=== PATIENT | female | born 1945 | race Caucasian/White ===

== ENCOUNTER 2018-06-20 06:07 | Day surgery (SDC) | payer MEDICARE, OTHER ==
[~2018-06-20] VITALS: Ht 167.6 cm; Wt 84.4 kg
[~2018-06-20 06:07] MED LIST: ASPI1TAB PO; COQ-100C2 PO; IBUP-1114 PO; OMEP20CA3 PO; ST J300T2 PO; VITA100067 PO; VITA500T3 PO
[2018-06-20] MEDS ORDERED: ceFAZolin 1GM INJ (J0690 PER 500MG) As Ordered ONE (06:18)
[2018-06-20] MEDS ORDERED: LIDOCAINE 2% INJ 100 MG/5 ML SDV (FOR ANES.) As Ordered ONE (07:01)
[2018-06-20] MEDS ORDERED: ROCURONIUM BROMIDE 50 MG/5 ML VIAL As Ordered ONE (07:01)
[2018-06-20] MEDS ORDERED: dexameTHASONE 4 MG/ML 1ML VIAL (J1100) As Ordered ONE (07:01)
[2018-06-20] MEDS ORDERED: ONDANSETRON 4MG/2ML VIAL (J2405) As Ordered ONE (07:01)
[2018-06-20] MEDS ORDERED: PROPOFOL 200 MG/20 ML VIAL As Ordered ONE (07:01)
[2018-06-20] MEDS ORDERED: MIDAZOLAM INJ 2 MG/2 ML VIAL (J2250) As Ordered ONE (07:02)
[2018-06-20] MEDS ORDERED: fentaNYL 100 MCG/2 ML INJECTION (J3010) As Ordered ONE (07:02)
[2018-06-20] MEDS ORDERED: LIDOCAINE 2% W/EPIN INJ 20ML **PRES FREE As Ordered ONE (07:13)
[2018-06-20] MEDS ORDERED: BACITRACIN OINT 30GM As Ordered ONE (07:13)
[2018-06-20] MEDS ORDERED: LIDOCAINE W/EPINEPHRINE 1% 20ML VIAL As Ordered ONE (07:13)
--- NOTE | 2018-06-20 08:52 | POST-OPPD ---
Postoperative Procedure Note Date Of Procedure: Jun 20, 2018 PREOPERATIVE DIAGNOSIS: Basal cell carcinoma upper lip POSTOPERATIVE DIAGNOSIS: Same FINDINGS: Lesion 0.5x1cm upper lip. Open wound after excisions with margins 0.9x1.8cm PROCEDURE: Excision of malignant lesion upper lip SURGEON: Dr Poole ANESTHESIA: Local with sedation SPECIMENS: upper lip lesion (FS), Inferior margin ESTIMATED BLOOD LOSS: 4cc REPLACED: none DRAINS: none COMPLICATIONS: none POSTOPERATIVE CONDITION: Stable to recovery YSABEL POOLE DO Jun 20, 2018 08:52
[2018-06-20] MEDS ORDERED: ACET30TAB PO (08:59)
[2018-06-20 09:50] VITALS: BP 160/82
--- NOTE | 2018-06-20 14:40 | RO ---
DATE OF PROCEDURE: 06/20/2018 PREPROCEDURE DIAGNOSIS: Basal cell carcinoma upper lip. POSTPROCEDURE DIAGNOSIS: Basal cell carcinoma upper lip. PROCEDURE: Excision of malignant lesion upper lip. SURGEON: Dr. Alissa Pineda. DRUM STRAIGHTENER: ANESTHESIA: Local with sedation. SPECIMEN: Upper lip lesion frozen section and then an additional permanent specimen inferior margin. ESTIMATED BLOOD LOSS: 4 mL. No replacement needed. The lesion measured 0.5 x 1 cm. DESCRIPTION OF PROCEDURE: This is a 73-year-old female who presents to my office with this non-healing lesion on her middle upper lip. The lesion was biopsied and shows basal cell carcinoma. She came to the office for complete excision with margins and reconstruction. All the risks, benefits and alternatives discussed with the patient. She is ready to proceed. She was brought into the operating room today, placed in the supine position. Sequential stockings were placed on the lower calves and antibiotics were given. She was prepped and draped in the usual sterile fashion. The lesion is oriented vertically and it is including the vermilion border. So it is 1 cm in height and 0.5 width. We added margins and then the inferior orbital block was given to the patient. Then also some localized areas of 2% lidocaine with epinephrine and then a elliptical incision was carried out including complete lesion excision with margins. There was marked with a suture at 12-o'clock and sent to pathology for frozen section. In the meantime, hemostasis was obtained using electrocautery and the wound is irrigated with normal saline. Pathology confirmed the specimen was basal cell and the margins are clear and then we started closure of our wound. The undermining was carried out along the wound edges. The excess tissue was excised on the lip portion of the wound. The deep stitch was placed along the vermilion border with #4-0 Vicryl suture and then #5-0 Monocryl sutures were used to close the rest of the wound. The dog ears were excised inferiorly and superiorly. Good approximation was achieved. #6-0 plain gut suture was used to do the final touch-ups on the skin where the derm was stitched. Steri-Strips were placer under the nose portion of this incision and bacitracin on the lip. Patient tolerated the procedure well. She was then transferred to the recovery room in stable condition.
== END 2018-06-20 09:58 | disposition home or self-care (01) ==
LOC: M SDC 06:07
PROVIDERS: ATTEND Plastic Surgery Surgery of the Hand
DX: C44.01 Basal cell carcinoma of skin of lip (principal); I10 Essential (primary) hypertension; K57.30 Diverticulosis of large intestine without perforation or abscess without bleeding; K21.9 Gastro-esophageal reflux disease without esophagitis; R25.2 Cramp and spasm; R06.83 Snoring; Z79.899 Other long term (current) drug therapy; Z79.82 Long term (current) use of aspirin; Z86.14 Personal history of Methicillin resistant Staphylococcus aureus infection; Z86.718 Personal history of other venous thrombosis and embolism; Z78.0 Asymptomatic menopausal state; Z98.51 Tubal ligation status; Z96.653 Presence of artificial knee joint, bilateral
CPT/HCPCS: 11642; 12051; 88305; 88331; J2250; J2405; J3010

== ENCOUNTER → 2018-07-22 | Outpatient (REF) | payer MEDICARE, OTHER ==
[~2018-07-22] MED LIST changes: +ACET30TAB PO
== END ==
LOC: M LAB REF 12:42
PROVIDERS: ATTEND Plastic Surgery Surgery of the Hand
DX: C44.01 Basal cell carcinoma of skin of lip (principal)

== ENCOUNTER 2022-01-07 20:30 | Emergency (ER) | payer MEDICARE, OTHER ==
[~2022-01-07] VITALS: Ht 170.2 cm; Wt 81.1 kg
[~2022-01-07 20:30] MED LIST changes: +ACET-716 PO; -ACET30TAB PO; -ASPI1TAB PO; +ASPI81TA26 PO; +CYAN500T14 PO; +OMEP1CAP73 PO; -OMEP20CA3 PO; -VITA500T3 PO
[2022-01-07 20:32] VITALS: BP 121/72
[2022-01-07] MEDS ORDERED: LISI10TA22 (20:40)
== END 2022-01-07 23:30 | disposition left against medical advice (07) ==
LOC: M ED 20:30
DX: Z53.29 Procedure and treatment not carried out because of patient's decision for other reasons (principal)